=== PATIENT | male | born 1955 | race Caucasian/White ===

== ENCOUNTER 2024-02-09 22:45 | Emergency (ER) | payer MEDICARE, MEDICAID ==
[~2024-02-09] VITALS: Ht 167.6 cm; Wt 155.0 kg
[2024-02-09 23:03] VITALS: TEMP 97.9; O2SAT 98
[2024-02-09 23:22] VITALS: BP 126/74; PULSE 82; RESP 16
[2024-02-09] MEDS: LIDOCAINE 5% PATCH TOP SCH (23:22)
[2024-02-09] MEDS: ACETAMINOPHEN 325MG TABLET PO ONE (23:22)
[2024-02-09] MEDS: KETOROLAC 30MG/ML VIAL IM ONE (23:22)
[2024-02-09] MEDS ORDERED: BACL-141 MT (23:32)
[2024-02-09] MEDS ORDERED: ACET-2708 MT (23:32)
[2024-02-09] MEDS ORDERED: LIDO700A15 TP (23:32)
== END 2024-02-10 00:35 | disposition home or self-care (01) ==
LOC: ER 22:45
DX: M54.2 Cervicalgia (principal); E11.9 Type 2 diabetes mellitus without complications; I10 Essential (primary) hypertension
CPT/HCPCS: 99283; 96372; J1885